=== PATIENT | female | born 1995 | race African-American/Black ===

== ENCOUNTER 2017-08-25 17:05 | Emergency (ER) | payer MEDICAID ==
[~2017-08-25] VITALS: Ht 160 cm; Wt 64.9 kg
[~2017-08-25 17:05] MED LIST: ALBUTEROL SULF8.5 GM INH; ATIVAN1 MG ORAL; ATIVAN2 MG ORAL; IBUPROFEN600 MG ORAL; POLYTRIM OP SOL10 ML BOTH EYES
[2017-08-25 18:06] VITALS: BP 107/77
[2017-08-25] MEDS ORDERED: Tylenol #3 tab (300mg/30mg) ORAL ONE (18:30)
[2017-08-25] MEDS ORDERED: ACETAMINOPHEN-1 EAC1 ORAL (19:17)
[2017-08-25 19:30] VITALS: BP 105/73
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
--- NOTE | 2017-08-26 12:29 | Diagnostic Imaging Report ---
Indications: Pain Technique: Spiral images obtained through the facial bones. No IV contrast utilized. Multiplanar reconstructions were generated.Total dose length product 545.01 mGycm. CTDIvol(s) 28.19 mGy. Dose reduction achieved using automated exposure control Comparison: none Findings: No acute fractures. There is a right maxillary sinus air-fluid level. There is bilateral maxillary sinus mucosal disease. The optic globes are intact. The retroseptal orbits are unremarkable. The visualized intracranial structures are unremarkable. Intact dentition. Impression: No acute bony trauma Evidence of right maxillary sinusitis and bilateral maxillary sinus mucosal disease This agrees with the preliminary interpretation provided overnight by [facility] teleradiology service. The CT scanner at [facility] is accredited by the [employer] and the scans are performed using protocols designed to limit radiation exposure to as low as reasonably achievable to attain images of sufficient resolution adequate for diagnostic evaluation.
--- NOTE | 2017-08-26 12:31 | Diagnostic Imaging Report ---
Indication: Reason For Exam: PAIN Technique: 3 views of the left shoulder Comparison: none Findings: No acute fractures. No dislocations. Joint spaces are preserved. Impression: Negative
== END 2017-08-25 19:30 | disposition home or self-care (01) ==
LOC: EMR 17:35
DX: S46.912A Strain of unspecified muscle, fascia and tendon at shoulder and upper arm level, left arm, initial encounter (principal); S00.83XA Contusion of other part of head, initial encounter; V43.62XA Car passenger injured in collision with other type car in traffic accident, initial encounter; Y92.9 Unspecified place or not applicable; J45.909 Unspecified asthma, uncomplicated; J32.0 Chronic maxillary sinusitis; Z91.010 Allergy to peanuts
CPT/HCPCS: 70486; 81025; 99284

== ENCOUNTER 2020-03-21 10:23 | Emergency (ER) | payer MEDICAID ==
[~2020-03-21] VITALS: Ht 162.6 cm; Wt 65.8 kg
[~2020-03-21 10:23] MED LIST changes: +ACETAMINOPHEN-1 EAC1 ORAL; +HYDROCODON-ACE1 EA15 ORAL; +SILVADENE20 GM TP
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
[2020-03-21] MEDS ORDERED: NORCO 5-325 TA1 EAC1 ORAL (11:33)
[2020-03-21] MEDS ORDERED: IBUPROFEN600 M1 ORAL (11:33)
[2020-03-21 11:46] VITALS: BP 132/77
== END 2020-03-21 11:48 | disposition home or self-care (01) ==
LOC: EMR 11:40
DX: T24.232A Burn of second degree of left lower leg, initial encounter (principal); T24.231A Burn of second degree of right lower leg, initial encounter; X08.8XXA Exposure to other specified smoke, fire and flames, initial encounter; Y92.9 Unspecified place or not applicable; Z91.010 Allergy to peanuts
CPT/HCPCS: 99282

== ENCOUNTER 2020-04-03 06:22 | Emergency (ER) | payer MEDICAID ==
[~2020-04-03] VITALS: Ht 160 cm; Wt 79.4 kg
[~2020-04-03 06:22] MED LIST changes: +IBUPROFEN600 M1 ORAL; +NORCO 5-325 TA1 EAC1 ORAL
[2020-04-03] MEDS ORDERED: NORCO 5-325 TA1 EAC1 ORAL (06:43)
[2020-04-03] MEDS ORDERED: SILVER SULFADIA50 GM TP (06:43)
[2020-04-03 06:44] VITALS: BP 102/72
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
== END 2020-04-03 06:44 | disposition home or self-care (01) ==
LOC: EMR 06:40
DX: T24.231A Burn of second degree of right lower leg, initial encounter (principal); T24.232A Burn of second degree of left lower leg, initial encounter; X08.8XXA Exposure to other specified smoke, fire and flames, initial encounter; Y92.9 Unspecified place or not applicable; F41.9 Anxiety disorder, unspecified; Z91.010 Allergy to peanuts
CPT/HCPCS: 99282